=== PATIENT | female | born 1980 | race African-American/Black ===

== ENCOUNTER 2016-06-15 17:14 | Emergency (ER) | payer MEDICAID ==
[~2016-06-15] VITALS: Ht 162.6 cm; Wt 58.0 kg
[2016-06-15] MEDS ORDERED: NAPROXEN 375MG TABLET PO ONE (20:00)
[2016-06-15 22:12] VITALS: BP 125/74
== END 2016-06-15 22:13 | disposition home or self-care (01) ==
LOC: ER 18:09
DX: R09.1 Pleurisy (principal)
CPT/HCPCS: 71010; 93005; 99284; Z7610